=== PATIENT | female | born 1990 | race Caucasian/White ===

== ENCOUNTER → 2021-10-11 | Outpatient (CLI) | payer OTHER ==
[~2021-10-11] MED LIST: ADVI200T PO; MAPA500T2 PO
--- NOTE | 2021-10-11 18:24 | REP ---
INDICATION: RUOQ TENDERNESS. COMPARISON: None TECHNIQUE: Real-time sonographic evaluation of right breast performed. FINDINGS: In the retroareolar region of the right breast there is a nodule which appears solid, oval in shape, wider than tall, with no distal acoustic shadowing, and thin linear echogenic internal septae. This most likely represents a fibroadenoma. It measures 6 x 7 x 12 mm. A similar appearing solid nodule is seen at 10 o'clock measuring 14 x 5 x 14 mm. Elastography interrogation of both nodules demonstrate KPa values of 11.8 maximally. IMPRESSION: BIRADS/ACR category 3, probably benign. Two oval solid nodules demonstrating sonographic findings most compatible with fibroadenomas as discussed in detail above. RECOMMENDATION: Recommend follow-up ultrasound in 6 months. If a definitive diagnosis is desired ultrasound-guided biopsy may be performed. <Electronically signed by Myles Linares > 10/11/21 [id number]
== END ==
LOC: M RAD 15:04
PROVIDERS: ATTEND Nurse Practitioner Primary Care
DX: N64.4 Mastodynia (principal); N63.11 Unspecified lump in the right breast, upper outer quadrant

== ENCOUNTER → 2022-02-17 | Outpatient (CLI) | payer OTHER ==
[~2022-02-17] MED LIST changes: +BUPR150T12 PO
== END ==
LOC: M LAB 14:47
DX: Z13.9 Encounter for screening, unspecified (principal); Z80.41 Family history of malignant neoplasm of ovary; Z80.49 Family history of malignant neoplasm of other genital organs; Z80.8 Family history of malignant neoplasm of other organs or systems

== ENCOUNTER 2022-02-28 07:26 | Day surgery (SDC) | payer OTHER ==
[~2022-02-28] VITALS: Ht 154.9 cm; Wt 60.1 kg
[~2022-02-28 07:26] MED LIST changes: +ACETAMINOPHEN 650 MG SUPP PR ONE; +BUPIVACAINE HCL 0.25% 10ML VIAL SC ONE; +NS 1,000 ML IV SCH
[2022-02-28] MEDS ORDERED: INSULIN LISPRO (NovoLOG) PER UNIT SC PRN ×2 (08:10→09:55)
[2022-02-28] MEDS ORDERED: LR 1,000 ML IV SCH ×2 (08:10→09:55)
[2022-02-28 08:13] LABS: HEMATOCRIT 38.1 % (36.0-47.0); HEMOGLOBIN 12.7 g/dl (12.0-15.5); MEAN CORPUSCULAR HEMOGLOBIN 29.7 pg (27.0-33.0); MEAN CORPUSCULAR HGB CONC 33.3 g/dl (32.0-36.5); PLATELET COUNT, AUTOMATED 269 10^3/uL (150-450); RED BLOOD COUNT 4.28 10^6/uL (4.00-5.40); WHITE BLOOD COUNT 5.9 10^3/uL (4.0-10.0)
[2022-02-28] MEDS ORDERED: ROCURONIUM BROMIDE 50 MG/5 ML VIAL As Ordered ONE (08:16)
[2022-02-28] MEDS ORDERED: LIDOCAINE 2% 100MG/5ML SDV (FOR ANES.) As Ordered ONE (08:16)
[2022-02-28] MEDS ORDERED: propofoL 200 MG/20 ML VIAL As Ordered ONE (08:16)
[2022-02-28] MEDS ORDERED: fentaNYL 100 MCG/2 ML INJECTION As Ordered ONE (08:17)
[2022-02-28] MEDS ORDERED: MIDAZOLAM INJ 2MG/2ML VIAL (J2250 PER 1MG) As Ordered ONE (08:17)
[2022-02-28 08:43] LABS: BLOOD UREA NITROGEN 10 MG/DL (7-18); CALCIUM LEVEL 8.7 MG/DL (8.5-10.1); CARBON DIOXIDE LEVEL 24 MEQ/L (21-32); CHLORIDE LEVEL 109 MEQ/L (98-107); CREATININE FOR GFR 0.64 MG/DL (0.55-1.30); GLOMERULAR FILTRATION RATE > 60.0 (>60); GLUCOSE, FASTING 90 MG/DL (70-100); HCG, SERUM QUANTITATIVE < 1.0 MIU/ML; SODIUM LEVEL 139 MEQ/L (136-145)
[2022-02-28] MEDS ORDERED: SCOPOLAMINE 1MG TRANSDERMAL PATCH TOP ONE (08:45)
[2022-02-28] MEDS ORDERED: ACETAMINOPHEN 650 MG SUPP As Ordered ONE (08:48)
[2022-02-28] MEDS ORDERED: BUPIVACAINE HCL 0.5% 30ML VIAL As Ordered ONE (08:48)
[2022-02-28] MEDS ORDERED: dexameTHASONE 4 MG/ML 1ML VIAL (J1100 PER 1MG) As Ordered ONE (09:13)
[2022-02-28] MEDS ORDERED: ESMOLOL INJ 100MG/10ML VIAL As Ordered ONE (09:14)
[2022-02-28] MEDS ORDERED: ONDANSETRON 4MG/2ML VIAL As Ordered ONE (09:32)
[2022-02-28] MEDS ORDERED: KETOROLAC 60MG 2ML VIAL As Ordered ONE (09:32)
[2022-02-28] MEDS ORDERED: METOCLOPRAMIDE INJ 10MG/2ML VIAL (J2765 PER 1) As Ordered ONE (09:32)
[2022-02-28] MEDS ORDERED: ONDANSETRON 4MG/2ML VIAL IV PRN (09:55)
[2022-02-28] MEDS ORDERED: oxyCODONE 5MG TAB PO PRN (09:55)
[2022-02-28] MEDS ORDERED: MORPHINE 2 MG/ML 1ML VIAL IV PRN (09:55)
[2022-02-28] MEDS: fentaNYL 100 MCG/2 ML INJECTION IV PRN ×2 (10:16→10:30)
[2022-02-28 11:30] VITALS: BP 137/86
== END 2022-02-28 11:48 | disposition home or self-care (01) ==
LOC: M SDC 07:26
PROVIDERS: ATTEND Obstetrics & Gynecology
DX: Z30.2 Encounter for sterilization (principal); F41.9 Anxiety disorder, unspecified; Z91.041 Radiographic dye allergy status; Z79.899 Other long term (current) drug therapy
CPT/HCPCS: 36415; 58671; 80048; 84702; 85027; A4264; J1100; J1885; J2250; J2405; J2765; J3010

== ENCOUNTER → 2022-03-20 | Outpatient (CLI) | payer OTHER ==
[~2022-03-20] MED LIST changes: -ACETAMINOPHEN 650 MG SUPP PR ONE; -BUPIVACAINE HCL 0.25% 10ML VIAL SC ONE; -NS 1,000 ML IV SCH
== END ==
LOC: M WHC 07:02
PROVIDERS: ATTEND Nurse Practitioner Women's Health
DX: R92.8 Other abnormal and inconclusive findings on diagnostic imaging of breast (principal); N64.4 Mastodynia

== ENCOUNTER → 2025-09-08 | Outpatient (CLI) | payer OTHER | LOC: M WHC 12:14 | PROVIDERS: ATTEND Physician Assistant | DX: N60.01 Solitary cyst of right breast (principal) | CPT/HCPCS: 76641; 77066; G0279 ==